=== PATIENT | male | born 1960 | race Caucasian/White ===

== ENCOUNTER 2023-07-08 09:35 | Emergency (ER) | payer OTHER ==
[~2023-07-08] VITALS: Ht 167.6 cm; Wt 82.0 kg
[2023-07-08 09:38] VITALS: BP 155/96; PULSE 82; RESP 18; TEMP 98.4; O2SAT 98
[2023-07-08 10:43] LABS: BASOPHILS % 0.5 % (0.0-2.0); EOSINOPHILS % 4.8 % (0.0-5.0); HEMATOCRIT. 44.4 % (42.0-52.0); HEMOGLOBIN. 15.2 g/dL (14.0-18.0); LYMPHOCYTES % 33.7 % (20.0-50.0); MEAN CORPUSCULAR HEMOGLOBIN 32.5 pg (28.0-32.0); MEAN CORPUSCULAR HGB CONC 34.3 g/dL (31.0-37.0); MEAN CORPUSCULAR VOLUME 94.8 fL (80.0-94.0); MEAN PLATELET VOLUME 8.4 fl (7.4-10.4); MONOCYTES % 7.1 % (2.0-8.0); NEUTROPHILS % 53.9 % (40.0-76.0); PLATELET 215 x1000/uL (130-400); RED BLOOD CELL COUNT 4.68 mill/uL (4.7-6.1); RED CELL DISTRIBUTION WIDTH 14.8 % (11.6-14.6); WHITE BLOOD COUNT 9.9 x1000/uL (4.5-11.0)
[2023-07-08 11:25] LABS: CHLORIDE 110 mEq/L (98-107); INDEX HEMOLYSI 2 (1-3); INDEX ICTERIC 1 (1-4); INDEX LIPEMIC 1 (1-3); POTASSIUM 3.6 mEq/L (3.5-5.1); SODIUM 141 mEq/L (136-145)
[2023-07-08 11:33] LABS: ACETAMINOPHEN <2 ug/mL ug/mL (10-30); ALANINE AMINOTRANSFERASE 143 IU/L (13-61); ALBUMIN 3.7 g/dL (3.4-5.0); ASPARTATE AMINOTRANSFERASE 89 IU/L (15-37); BILIRUBIN TOTAL 0.5 mg/dL (0.1-1.0); CALCIUM 8.1 mg/dL (8.5-10.1); CARBON DIOXIDE 27 mEq/L (21-32); CREATININE 0.9 mg/dL (0.6-1.3); GLUCOSE 119 mg/dL (70-105); PROTEIN TOTAL 7.7 g/dL (6.0-8.3); UREA NITROGEN BLOOD 8 mg/dL (7-21)
[2023-07-08 12:46] LABS: ETHANOL BLOOD 472 mg/dL (-10)
== END 2023-07-08 20:10 | disposition home or self-care (01) ==
LOC: EDBD 09:47 → ER 09:47
DX: F10.129 Alcohol abuse with intoxication, unspecified (principal); Y90.9 Presence of alcohol in blood, level not specified
CPT/HCPCS: 36415; 80053; 80307; 80320; 80329; 85025; 93005; 99284; G0480

== ENCOUNTER 2025-01-28 07:18 | Emergency (ER) | payer OTHER ==
[~2025-01-28] VITALS: Ht 165.1 cm; Wt 82.0 kg
[2025-01-28 07:22] VITALS: BP 160/87; PULSE 100; RESP 15; TEMP 37.1; O2SAT 99
[2025-01-28] MEDS ORDERED: SODIUM CHLORIDE 0.9% 1,000 ML IV ONE (07:30)
== END 2025-01-28 08:10 | disposition left against medical advice (07) ==
LOC: ER 07:18
DX: F10.129 Alcohol abuse with intoxication, unspecified (principal); Y90.9 Presence of alcohol in blood, level not specified
CPT/HCPCS: 99283; J7030

== ENCOUNTER 2025-02-07 17:18 | Emergency (ER) | payer OTHER ==
[~2025-02-07] VITALS: Ht 182.9 cm; Wt 105.0 kg
[2025-02-07 17:22] VITALS: BP 107/56; PULSE 118; RESP 16; TEMP 37.3; O2SAT 96
== END 2025-02-07 18:40 | disposition left against medical advice (07) ==
LOC: ER 17:18
DX: F10.129 Alcohol abuse with intoxication, unspecified (principal); Z53.21 Procedure and treatment not carried out due to patient leaving prior to being seen by health care provider; Y90.9 Presence of alcohol in blood, level not specified

== ENCOUNTER 2025-09-30 22:43 | Inpatient (IN) | payer OTHER, MEDICARE, MEDICAID ==
[~2025-09-30] VITALS: Ht 167.6 cm; Wt 54.5 kg
[2025-09-30 22:48] VITALS: O2SAT 97
[2025-09-30 23:29] VITALS: O2SAT 98
[2025-09-30] MEDS ORDERED: VANCOMYCIN 1000MG/250ML 250 ML IV SCH (23:30)
[2025-09-30 23:31] LABS: BG BASE EXCESS -1.5 mmol/L (-2.0-3.0); BG CARBOXYHEMOGLOBIN 0.6 % (0.5-1.5); BG DEOXYHEMOGLOBIN 6.2 % (0.0-5.0); BG FLOW(L/min) 25.00 L/min; BG FRACTION INSPIRED OXYGEN 80; BG HCO3 ACT 21.0 mmol/L (21.0-28.0); BG METHEMOGLOBIN 0.3 % (0.5-1.5); BG OXYGEN SATURATION 93.7 % (94.0-98.0); BG OXYHEMOGLOBIN 92.9 % (94.0-98.0); BG PCO2 29.0 mmHg (35.0-48.0); BG PH 7.478 (7.350-7.450); BG PO2 70.2 mmHg (83.0-108.0); BG SAMPLE SITE LEFT RADIAL; BG TOTAL HEMOGLOBIN 12.7 g/dL (13.5-17.5); BG VENT MODE HIGH FLOW
[2025-09-30] MEDS: LORAZEPAM 2MG/ML UD SYRINGE IV NR (23:36)
[2025-09-30] MEDS: SODIUM CHLORIDE 0.9% (SEPSIS BOLUS) IV ONE (23:38)
[2025-09-30] MEDS: SODIUM CHLORIDE 0.9% 1,000 ML IV ONE (23:38)
[2025-09-30 23:43] LABS: BASOPHILS % 0.4 % (0.0-2.0); EOSINOPHILS % 0.6 % (0.0-5.0); HEMATOCRIT. 41.4 % (42.0-52.0); HEMOGLOBIN. 12.3 g/dL (14.0-18.0); LYMPHOCYTES % 10.9 % (20.0-50.0); MEAN PLATELET VOLUME 8.9 fl (7.4-10.4); MONOCYTES % 4.0 % (2.0-8.0); NEUTROPHILS % 84.1 % (40.0-76.0); PLATELET 610 x1000/uL (130-400); RED BLOOD CELL COUNT 4.19 mill/uL (4.7-6.1); RED CELL DISTRIBUTION WIDTH 18.9 % (11.6-14.6)
[2025-09-30 23:51] LABS: CREATININE 0.8 mg/dL (0.6-1.3)
[2025-09-30 23:52] LABS: UREA NITROGEN BLOOD 26 mg/dL (9-23)
[2025-09-30 23:53] LABS: ASPARTATE AMINOTRANSFERASE 26 IU/L (<34)
[2025-09-30 23:54] LABS: BILIRUBIN DIRECT 0.2 mg/dL (<=3.0); BILIRUBIN TOTAL 0.5 mg/dL (0.1-1.0); PROTEIN TOTAL 8.3 g/dL (6.0-8.3)
[2025-10-01] VITALS (19 sets, daily range): BP systolic 87–147; BP diastolic 63–95; PULSE 99–136; RESP 16–30; TEMP 36.2–37.7524; O2SAT 90–100
[2025-10-01] MEDS: PIPERACILLIN/TAZO 3.375G/50ML 50 ML IV ONE (00:02)
[2025-10-01 00:08] LABS: TROPONIN I HIGH SENSITIVITY 4 ng/L (3.0-53)
[2025-10-01] MEDS: VANCOMYCIN 1G PREMIX 200 ML IV SCH (00:22)
[2025-10-01 00:34] LABS: CLARITY URINE TURBID (CLEAR); COLOR URINE DARK YELLOW (YELLOW); GLUCOSE URINE NEGATIVE (NEGATIVE); KETONES URINE NEGATIVE (NEGATIVE); LEUKOCYTE ESTERASE URINE 3+ (NEGATIVE); NITRITE URINE NEGATIVE (NEGATIVE); OCCULT BLOOD URINE 2+ (NEGATIVE); PH URINE 5.5 (4.5-8.0); PROTEIN URINE 2+ (NEGATIVE); SPECIFIC GRAVITY URINE 1.023 (1.005-1.030); UROBILINOGEN URINE 1.0 E.U./dL (0.2-1.0)
[2025-10-01 03:06] LABS: WBC URINE TNTC /hpf (0-2)
[2025-10-01 03:07] LABS: RBC URINE 25-50 /hpf (0-2)
[2025-10-01 03:08] LABS: BACTERIA URINE 4+; SQUAMOUS EPITHELIAL CELL URINE NONE SEEN /lpf (RARE/1+)
[2025-10-01] MEDS ORDERED: ONDANSETRON HCL 4MG/2ML INJ IV PRN (03:30)
[2025-10-01] MEDS ORDERED: ACETAMINOPHEN 325MG TABLET PO PRN (03:30)
[2025-10-01] MEDS ORDERED: DOCUSATE SODIUM 100MG CAPSULE PO PRN (03:30)
[2025-10-01] MEDS ORDERED: IPRATROPIUM/ALBUTEROL 0.5-3(2.5)MG/3ML NEB HHN PRN (03:30)
[2025-10-01] MEDS ORDERED: MAGNESIUM/ALUMINUM HYDROXIDE/SIMETHICONE 30ML UDC PO PRN (03:30)
[2025-10-01] MEDS ORDERED: CLONIDINE 0.1MG TABLET PO PRN (03:30)
[2025-10-01 03:47] LABS: INR 1.2
[2025-10-01] MEDS ORDERED: AZITHROMYCIN 500MG/250ML 250 ML IV SCH ×2 (04:00)
[2025-10-01 04:03] LABS: TROPONIN I HIGH SENSITIVITY 4 ng/L (3.0-53)
[2025-10-01 04:04] LABS: PHOSPHORUS 3.9 mg/dL (2.5-4.9)
[2025-10-01] MEDS ORDERED: IOHEXOL-350 100 ML BOTTLE ONE (05:47)
[2025-10-01] MEDS: PIPERACILLIN/TAZO 3.375G/50ML 50 ML IV SCH (06:38)
[2025-10-01] MEDS: ACETAMINOPHEN 325MG TABLET PO PRN (06:38)
[2025-10-01] MEDS: PANTOPRAZOLE SODIUM 40 MG/VIAL IV SCH (09:12)
[2025-10-01] MEDS: ENOXAPARIN 40MG/0.4ML SYR SUBCUT SCH (09:13)
[2025-10-01] MEDS: DEXT 5%/0.9% NACL 1,000 ML IV SCH (09:13)
[2025-10-01] MEDS: AZITHROMYCIN 500MG/250ML 250 ML IV SCH (09:13)
[2025-10-01] MEDS ORDERED: DEXT 5%/LACTATED RINGERS 1,000 ML IV NR (09:30)
[2025-10-01] MEDS: VANCOMYCIN 750MG/150ML (BAXTER) IV SCH (09:31)
[2025-10-01] MEDS: ALBUMIN HUMAN 12.5G/250ML (5%) IV SCH (10:20)
[2025-10-01 11:57] LABS: UREA NITROGEN BLOOD 17 mg/dL (9-23)
[2025-10-01 11:59] LABS: ASPARTATE AMINOTRANSFERASE 11 IU/L (<34); BILIRUBIN TOTAL 0.5 mg/dL (0.1-1.0); PROTEIN TOTAL 6.2 g/dL (6.0-8.3)
[2025-10-01 12:08] LABS: CREATININE 0.5 mg/dL (0.6-1.3)
[2025-10-01 12:45] LABS: BG BASE EXCESS -0.6 mmol/L (-2.0-3.0); BG CARBOXYHEMOGLOBIN 0.7 % (0.5-1.5); BG DEOXYHEMOGLOBIN 2.7 % (0.0-5.0); BG FLOW(L/min) 40.00 L/min; BG FRACTION INSPIRED OXYGEN 50; BG HCO3 ACT 22.7 mmol/L (21.0-28.0); BG METHEMOGLOBIN 0.0 % (0.5-1.5); BG OXYGEN SATURATION 97.3 % (94.0-98.0); BG OXYHEMOGLOBIN 96.6 % (94.0-98.0); BG PCO2 31.8 mmHg (35.0-48.0); BG PH 7.472 (7.350-7.450); BG PO2 91.0 mmHg (83.0-108.0); BG SAMPLE SITE LEFT RADIAL; BG TOTAL HEMOGLOBIN 8.5 g/dL (13.5-17.5); BG VENT MODE HIGH FLOW
[2025-10-01 14:09] LABS: INFLUENZA TYPE A Presumptive Negative (Pres. Neg.); INFLUENZA TYPE B Presumptive Negative (Pres. Neg.); RESPIRATORY SYNCYTIAL VIRUS Not Detected (Not Detectd)
[2025-10-01 17:32] LABS: TROPONIN I HIGH SENSITIVITY 4 ng/L (3.0-53)
[2025-10-01] MEDS: IPRATROPIUM/ALBUTEROL 0.5-3(2.5)MG/3ML NEB HHN SCH (21:31)
[2025-10-02] VITALS (20 sets, daily range): BP systolic 82–160; BP diastolic 55–82; PULSE 79–145; RESP 14–32; TEMP 36.4–37.6; O2SAT 93–100
[2025-10-02] MEDS: LORAZEPAM 2MG/ML UD SYRINGE IV PRN (01:59)
[2025-10-02 08:20] LABS: BASOPHILS % 0.1 % (0.0-2.0); EOSINOPHILS % 0.4 % (0.0-5.0); LYMPHOCYTES % 9.0 % (20.0-50.0); MEAN PLATELET VOLUME 9.5 fl (7.4-10.4); MONOCYTES % 4.3 % (2.0-8.0); NEUTROPHILS % 86.2 % (40.0-76.0); PLATELET 301 x1000/uL (130-400); RED BLOOD CELL COUNT 2.66 mill/uL (4.7-6.1); RED CELL DISTRIBUTION WIDTH 18.7 % (11.6-14.6)
[2025-10-02 08:41] LABS: CREATININE 0.5 mg/dL (0.6-1.3); TRIGLYCERIDE 77 mg/dL (0-150); UREA NITROGEN BLOOD 13 mg/dL (9-23)
[2025-10-02 08:42] LABS: LDL CHOLESTEROL 43 mg/dL (5-100)
[2025-10-02 08:43] LABS: PHOSPHORUS 2.7 mg/dL (2.5-4.9)
[2025-10-02 08:44] LABS: T4 FREE 1.10 ng/dL (0.89-1.76)
[2025-10-02 09:09] LABS: HEMOGLOBIN. 7.9 g/dL (14.0-18.0)
[2025-10-02 09:10] LABS: HEMATOCRIT. 25.6 % (42.0-52.0)
[2025-10-02] MEDS: POTASSIUM CHLORIDE 20MEQ TABLET SR PO SCH (12:27)
[2025-10-02] MEDS: MAGNESIUM 1 G PREMIX 100 ML IV NR (12:28)
[2025-10-02] MEDS: DEXTROSE 5% WATER 1,000 ML IV SCH (12:28)
[2025-10-02] MEDS: MIDODRINE HCL 5MG TABLET PO SCH (15:03)
[2025-10-03] VITALS (15 sets, daily range): BP systolic 86–119; BP diastolic 60–90; PULSE 85–115; RESP 18–34; TEMP 36.1–36.6; O2SAT 92–100
[2025-10-03] MEDS: ACETYLCYSTEINE 200MG/ML 20% VIAL 4ML INH SCH (01:30)
[2025-10-03 07:11] LABS: BASOPHILS % 0.6 % (0.0-2.0); EOSINOPHILS % 0.9 % (0.0-5.0); HEMATOCRIT. 23.7 % (42.0-52.0); HEMOGLOBIN. 7.4 g/dL (14.0-18.0); LYMPHOCYTES % 9.0 % (20.0-50.0); MEAN PLATELET VOLUME 9.4 fl (7.4-10.4); MONOCYTES % 3.0 % (2.0-8.0); NEUTROPHILS % 86.5 % (40.0-76.0); PLATELET 286 x1000/uL (130-400); RED BLOOD CELL COUNT 2.51 mill/uL (4.7-6.1); RED CELL DISTRIBUTION WIDTH 18.1 % (11.6-14.6)
[2025-10-03 07:39] LABS: UREA NITROGEN BLOOD 8 mg/dL (9-23)
[2025-10-03 07:59] LABS: CREATININE 0.3 mg/dL (0.6-1.3)
[2025-10-03] MEDS: GUAIFENESIN 200MG/10ML SUGAR FREE UDC PO PRN (11:27)
== END 2025-10-03 22:40 | disposition short-term general hospital (02) | DRG 871 ==
LOC: ER 22:43 → 5WST 10-01 02:07 → EDBEDREQTM 10-01 02:26 → EDBEDREQ 10-01 02:26 → EDBEDREQDT 10-01 02:26 → ENRESERV 10-01 03:39 → 5EST 10-01 04:30
PROVIDERS: ADMIT Hospitalist; ATTEND Hospitalist
PROC: 5A0945A Assistance with Respiratory Ventilation, 24-96 Consecutive Hours, High Flow/Velocity Cannula (ICD-10-PCS; principal; 2025-09-30)
DX: A41.9 Sepsis, unspecified organism (principal); G93.41 Metabolic encephalopathy; L89.154 Pressure ulcer of sacral region, stage 4; J96.01 Acute respiratory failure with hypoxia; J69.0 Pneumonitis due to inhalation of food and vomit; E87.20 Acidosis, unspecified; R13.10 Dysphagia, unspecified; E87.5 Hyperkalemia; R65.20 Severe sepsis without septic shock; D64.9 Anemia, unspecified; G40.909 Epilepsy, unspecified, not intractable, without status epilepticus; B96.89 Other specified bacterial agents as the cause of diseases classified elsewhere; E87.6 Hypokalemia; L89.320 Pressure ulcer of left buttock, unstageable; L89.310 Pressure ulcer of right buttock, unstageable; L89.210 Pressure ulcer of right hip, unstageable; N32.0 Bladder-neck obstruction; D75.839 Thrombocytosis, unspecified; R74.8 Abnormal levels of other serum enzymes; Z79.899 Other long term (current) drug therapy; Z74.01 Bed confinement status; Z86.73 Personal history of transient ischemic attack (TIA), and cerebral infarction without residual deficits; Z87.440 Personal history of urinary (tract) infections; Z93.1 Gastrostomy status
CPT/HCPCS: 36415; 36600; 71045; 71275; 80048; 80053; 80061; 80076; 80202; 81003; 82375; 82805; 82962; 83605; 83735; 83880; 84100; 84145; 84439; 84443; 84484; 85025; 85379; 87077; 87186; 87420; 87804; 93005; 94070; 94640; 94664; 99291; 99292; J0456; J1650; J2060; J2470; J2543; J3373; J3475; J7030; J7070; J7608; P9041; Q9967

== ENCOUNTER 2025-10-26 08:53 | Inpatient (IN) | payer OTHER, MEDICARE, MEDICAID ==
[~2025-10-26] VITALS: Ht 170.2 cm; Wt 70.3 kg
[2025-10-26] VITALS (10 sets, daily range): BP systolic 105–158; BP diastolic 64–92; PULSE 96–144; RESP 16–25; TEMP 36.696–37.7; O2SAT 98–100
[2025-10-26] MEDS ORDERED: ALBUTEROL (0.083%) 2.5MG/3ML NEB HHN SCH (09:15)
[2025-10-26] MEDS ORDERED: IPRATROPIUM BROMIDE (0.02%) 0.5MG/2.5ML NEB HHN SCH (09:15)
[2025-10-26] MEDS: DEXAMETHASONE 10 MG/ML VIAL IV ONE (09:20)
[2025-10-26] MEDS: SODIUM CHLORIDE 0.9% (SEPSIS BOLUS) IV ONE (09:21)
[2025-10-26 09:50] LABS: BASOPHILS % 0.5 % (0.0-2.0); EOSINOPHILS % 1.7 % (0.0-5.0); HEMATOCRIT. 35.0 % (42.0-52.0); HEMOGLOBIN. 10.9 g/dL (14.0-18.0); LYMPHOCYTES % 15.9 % (20.0-50.0); MEAN PLATELET VOLUME 8.0 fl (7.4-10.4); MONOCYTES % 2.2 % (2.0-8.0); NEUTROPHILS % 79.7 % (40.0-76.0); PLATELET 531 x1000/uL (130-400); RED BLOOD CELL COUNT 3.67 mill/uL (4.7-6.1); RED CELL DISTRIBUTION WIDTH 17.6 % (11.6-14.6)
[2025-10-26] MEDS: CEFTRIAXONE 1GM/50ML 50 ML IV ONE (09:51)
[2025-10-26 10:02] LABS: INR 1.0
[2025-10-26 10:05] LABS: ETHANOL BLOOD < 10 mg/dL (<10); TROPONIN I HIGH SENSITIVITY < 4 ng/L (3.0-53); UREA NITROGEN BLOOD 12 mg/dL (9-23)
[2025-10-26 10:06] LABS: ASPARTATE AMINOTRANSFERASE 17 IU/L (<34)
[2025-10-26 10:07] LABS: BILIRUBIN DIRECT < 0.1 mg/dL (<=3.0); BILIRUBIN TOTAL 0.3 mg/dL (0.1-1.0); CREATININE 0.5 mg/dL (0.6-1.3)
[2025-10-26 10:08] LABS: PROTEIN TOTAL 8.6 g/dL (6.0-8.3)
[2025-10-26] MEDS: AZITHROMYCIN 500MG/250ML 250 ML IV ONE (10:33)
[2025-10-26 10:34] LABS: BG BASE EXCESS -1.4 mmol/L (-2.0-3.0); BG CARBOXYHEMOGLOBIN 1.2 % (0.5-1.5); BG DEOXYHEMOGLOBIN 0.3 % (0.0-5.0); BG FRACTION INSPIRED OXYGEN 100; BG HCO3 ACT 23.8 mmol/L (21.0-28.0); BG METHEMOGLOBIN 0.3 % (0.5-1.5); BG OXYGEN SATURATION 99.7 % (94.0-98.0); BG OXYHEMOGLOBIN 98.2 % (94.0-98.0); BG PCO2 42.0 mmHg (35.0-48.0); BG PH 7.372 (7.350-7.450); BG PO2 406.8 mmHg (83.0-108.0); BG SAMPLE SITE LEFT RADIAL; BG TOTAL HEMOGLOBIN 12.0 g/dL (13.5-17.5); BG TOTAL RESPIRATORY RATE 39 b/min; BG VENT MODE MASK - BIPAP; BG VENT RATE 18.0 set
[2025-10-26 11:19] LABS: CLARITY URINE TURBID (CLEAR); COLOR URINE YELLOW (YELLOW); GLUCOSE URINE NEGATIVE (NEGATIVE); KETONES URINE NEGATIVE (NEGATIVE); LEUKOCYTE ESTERASE URINE 3+ (NEGATIVE); NITRITE URINE NEGATIVE (NEGATIVE); OCCULT BLOOD URINE 2+ (NEGATIVE); PH URINE 8.0 (4.5-8.0); PROTEIN URINE 1+ (NEGATIVE); SPECIFIC GRAVITY URINE 1.022 (1.005-1.030); UROBILINOGEN URINE 1.0 E.U./dL (0.2-1.0)
[2025-10-26 11:39] LABS: *AMPHETAMINES SCREEN URINE NEGATIVE (NEGATIVE); *BARBITURATES SCREEN URINE NEGATIVE (NEGATIVE); *BENZODIAZEPINES SCREEN URINE NEGATIVE (NEGATIVE); *COCAINE SCREEN URINE NEGATIVE (NEGATIVE); CANNABINOID URINE SCREEN NEGATIVE (NEGATIVE); ECSTASY MDMA SCREEN URINE NEGATIVE (NEGATIVE); METHADONE URINE SCREEN NEGATIVE (NEGATIVE); OPIATES URINE SCREEN NEGATIVE (NEGATIVE); PHENCYCLIDINE URINE SCREEN NEGATIVE (NEGATIVE)
[2025-10-26 11:50] LABS: SQUAMOUS EPITHELIAL CELL URINE NONE SEEN /lpf (RARE/1+)
[2025-10-26 11:52] LABS: TRIPLE PHOSPHATE CRYSTAL URINE 1+ /lpf
[2025-10-26 11:53] LABS: AMORPHOUS SEDIMENT URINE 2+ /lpf; BACTERIA URINE 4+
[2025-10-26 11:54] LABS: RBC URINE TNTC /hpf (0-2); WBC URINE 50-100 /hpf (0-2)
[2025-10-26] MEDS ORDERED: DEXTROSE 50% WATER 50ML SYRINGE IV PRN (12:15)
[2025-10-26] MEDS ORDERED: IPRATROPIUM/ALBUTEROL 0.5-3(2.5)MG/3ML NEB HHN PRN (12:15)
[2025-10-26] MEDS ORDERED: ONDANSETRON HCL 4MG/2ML INJ IV PRN (12:15)
[2025-10-26] MEDS ORDERED: MAGNESIUM/ALUMINUM HYDROXIDE/SIMETHICONE 30ML UDC PO PRN (12:15)
[2025-10-26] MEDS ORDERED: CLONIDINE 0.1MG TABLET PO PRN (12:15)
[2025-10-26] MEDS ORDERED: DOCUSATE SODIUM 100MG CAPSULE PO PRN (12:15)
[2025-10-26] MEDS ORDERED: ACETAMINOPHEN 325MG TABLET PO PRN (12:15)
[2025-10-26] MEDS ORDERED: CEFTRIAXONE 1GM/50ML 50 ML IV SCH (14:00)
[2025-10-26] MEDS ORDERED: MORPHINE SULFATE/PF 1 MG/ML 100 MG in BAG 1 EACH IV ONE (14:15)
[2025-10-26] MEDS ORDERED: MORPHINE SULFATE 2 MG/ML INJ (NOT FOR IM USE) IV SCH (14:30)
[2025-10-26] MEDS: IPRATROPIUM/ALBUTEROL 0.5-3(2.5)MG/3ML NEB NEB SCH (15:08)
[2025-10-26] MEDS: LEVETIRACETAM 500MG/5ML CUP PO SCH (16:02)
[2025-10-26] MEDS: ENOXAPARIN 30MG/0.3ML SYR SUBCUT SCH (16:13)
[2025-10-26] MEDS: METHYLPREDNISOLONE SOD SUCC 40MG/ML (ACT-O-VIAL) IV SCH (16:13)
[2025-10-26] MEDS: SODIUM CHLORIDE 0.9% 1,000 ML IV SCH (16:14)
[2025-10-26] MEDS: MORPHINE SULFATE 2 MG/ML INJ (NOT FOR IM USE) IV SCH ×2 (16:36→23:10)
[2025-10-26] MEDS: SODIUM CHLORIDE 0.9% 500 ML IV ONE (16:38)
[2025-10-26] MEDS: INSULIN LISPRO 100 UNITS/ML SUBCUT SCH (18:00)
[2025-10-26] MEDS: BLOOD SUGAR DIAGNOSTIC STRIP TEST SCH (18:00)
[2025-10-26] MEDS: DOXYCYCLINE 100MG/100ML 100 ML IV SCH (20:46)
[2025-10-26] MEDS: VANCOMYCIN 1G PREMIX 200 ML IV SCH (20:50)
[2025-10-26] MEDS: ACETAMINOPHEN 325MG TABLET PO PRN (22:02)
[2025-10-26] MEDS: GUAIFENESIN 200MG/10ML SUGAR FREE UDC PO PRN (22:32)
[2025-10-26] MEDS: ATORVASTATIN CALCIUM 20MG TABLET PO SCH (22:33)
[2025-10-27] VITALS (13 sets, daily range): BP systolic 90–125; BP diastolic 52–71; PULSE 94–118; RESP 16–22; TEMP 36.6–37.5; O2SAT 94–100
[2025-10-27] MEDS: VANCOMYCIN 750MG PREMIX 150 ML IV SCH ×2 (06:06→21:48)
[2025-10-27] MEDS: MAGNESIUM 4 G PREMIX 100 ML IV NR (06:06)
[2025-10-27] MEDS ORDERED: CEFTRIAXONE 1GM/50ML 50 ML IV SCH (08:00)
[2025-10-27] MEDS: PANTOPRAZOLE 40MG DR TABLET PO SCH (10:24)
[2025-10-27] MEDS: PIPERACILLIN/TAZO 3.375G/50ML 50 ML IV SCH (14:18)
[2025-10-27 17:50] LABS: HEMATOCRIT. 26.3 % (42.0-52.0); HEMOGLOBIN. 8.3 g/dL (14.0-18.0); MEAN PLATELET VOLUME 8.9 fl (7.4-10.4); PLATELET 337 x1000/uL (130-400); RED BLOOD CELL COUNT 2.81 mill/uL (4.7-6.1); RED CELL DISTRIBUTION WIDTH 17.3 % (11.6-14.6)
[2025-10-27 18:00] LABS: CREATININE 0.4 mg/dL (0.6-1.3)
[2025-10-27 18:01] LABS: UREA NITROGEN BLOOD 12 mg/dL (9-23)
[2025-10-27 20:23] LABS: LYMPHOCYTES % MANUAL 6.0 % (20.0-50.0); MONOCYTES % MANUAL 5.0 % (2.0-8.0); NEUTROPHILS % MANUAL 89.0 % (45.0-75.0); PLATELET ESTIMATE NORMAL
[2025-10-27] MEDS: KCL 20MEQ/100ML PREMIX 100 ML IV SCH (21:47)
[2025-10-28] VITALS (18 sets, daily range): BP systolic 117–149; BP diastolic 66–83; PULSE 87–129; RESP 14–25; TEMP 36.6–37.5; O2SAT 95–100
[2025-10-28] MEDS: INSULIN LISPRO 100 UNITS/ML SUBCUT SCH (01:27)
[2025-10-28 08:08] LABS: HEMATOCRIT. 25.7 % (42.0-52.0); HEMOGLOBIN. 8.2 g/dL (14.0-18.0); MEAN PLATELET VOLUME 9.1 fl (7.4-10.4); PLATELET 310 x1000/uL (130-400); RED BLOOD CELL COUNT 2.68 mill/uL (4.7-6.1); RED CELL DISTRIBUTION WIDTH 17.2 % (11.6-14.6)
[2025-10-28 08:25] LABS: CREATININE 0.4 mg/dL (0.6-1.3); UREA NITROGEN BLOOD 15 mg/dL (9-23)
[2025-10-28] MEDS: VANCOMYCIN 500 MG in DEXT 5% WATER 100 ML IV SCH (13:22)
[2025-10-28] MEDS: CARVEDILOL 3.125 MG TABLET PO SCH (13:23)
[2025-10-28] MEDS: HYDRALAZINE 20MG/ML VIAL IV SCH (20:11)
[2025-10-28] MEDS ORDERED: VANCOMYCIN 1.25GM/250ML 250 ML IV SCH (21:00)
[2025-10-28] MEDS: LORAZEPAM 2MG/ML UD SYRINGE IV PRN (21:07)
[2025-10-28] MEDS: LEVETIRACETAM 1000MG PREMIX 100 ML IV SCH (21:24)
[2025-10-29 17:11] LABS: BAND% 1.0 % (1.0-6.0); LYMPHOCYTES % MANUAL 1.0 % (20.0-50.0); NEUTROPHILS % MANUAL 98.0 % (45.0-75.0); PLATELET ESTIMATE NORMAL
== END 2025-10-28 22:08 | disposition short-term general hospital (02) | DRG 698 ==
LOC: ER 08:53 → 5EST 10:26 → EDBEDREQTM 10:37 → EDBEDREQ 10:37 → ENRESERV 10:39
PROVIDERS: ADMIT Internal Medicine; ATTEND Internal Medicine
PROC: 5A09357 Assistance with Respiratory Ventilation, Less than 24 Consecutive Hours, Continuous Positive Airway Pressure (ICD-10-PCS; principal; 2025-10-26)
PROC: 5A09357 Assistance with Respiratory Ventilation, Less than 24 Consecutive Hours, Continuous Positive Airway Pressure (ICD-10-PCS; 2025-10-27)
PROC: 5A09357 Assistance with Respiratory Ventilation, Less than 24 Consecutive Hours, Continuous Positive Airway Pressure (ICD-10-PCS; 2025-10-28)
DX: T83.518A Infection and inflammatory reaction due to other urinary catheter, initial encounter (principal); A41.9 Sepsis, unspecified organism; J69.0 Pneumonitis due to inhalation of food and vomit; J96.01 Acute respiratory failure with hypoxia; L89.154 Pressure ulcer of sacral region, stage 4; G93.41 Metabolic encephalopathy; L89.220 Pressure ulcer of left hip, unstageable; N39.0 Urinary tract infection, site not specified; D53.9 Nutritional anemia, unspecified; G40.909 Epilepsy, unspecified, not intractable, without status epilepticus; J44.9 Chronic obstructive pulmonary disease, unspecified; I10 Essential (primary) hypertension; E87.20 Acidosis, unspecified; L89.210 Pressure ulcer of right hip, unstageable; R13.10 Dysphagia, unspecified; D75.839 Thrombocytosis, unspecified; Z93.1 Gastrostomy status; Z74.01 Bed confinement status; N32.0 Bladder-neck obstruction; E78.5 Hyperlipidemia, unspecified; Y84.6 Urinary catheterization as the cause of abnormal reaction of the patient, or of later complication, without mention of misadventure at the time of the procedure; Y92.89 Other specified places as the place of occurrence of the external cause; Z86.73 Personal history of transient ischemic attack (TIA), and cerebral infarction without residual deficits; Z87.440 Personal history of urinary (tract) infections
CPT/HCPCS: 36415; 36600; 71045; 80048; 80076; 80202; 80305; 80320; 81003; 82375; 82805; 82962; 83605; 83735; 83880; 84145; 84484; 85025; 87070; 87077; 87186; 93005; 93970; 94070; 94640; 94660; 94664; 96365; 96375; 99291; A4606; A4615; J0360; J0456; J0696; J1100; J1650; J1815; J1953; J2060; J2270; J2543; J2919; J3373; J3475; J3480; J3490; J7030; J7060; G0480